=== PATIENT | female | born 1945 | race Caucasian/White ===

== ENCOUNTER → 2018-01-25 | Day surgery (SDC) | payer MEDICARE ==
--- NOTE | 2018-01-25 12:35 | MMO ---
STEREOTACTIC BIOPSY RIGHT BREAST MICROCALCIFICATIONS SURGICAL SPECIMEN MAMMOGRAPHY RIGHT DIAGNOSTIC MAMMOGRAPHY POST BIOPSY: History: Abnormal mammogram. Microcalcifications. FINDINGS: After explaining the procedure and answering all questions, the microcalcification cluster deep withi n the lateral aspect of the right breast was visualized. Sterile technique, buffered local anesthesia , stereotactic guidance and a lateral approach were used to carefully advance a 10 gauge vacuum magdy rafael needle into the microcalcifications. Position is confirmed. A total of 16 specimens were obtained . Surgical specimen mammography shows microcalcifications in the specimens. Localization clip is placed through the needle and needle was removed. Hemostatis was obtained using direct pressure. Patient to lerated the procedure well and was eventually dismissed in good condition. Post procedure mammography shows gas along the biopsy tract. Localization clip is in good position wh ere some microcalcifications have been removed deep within the lateral aspect of the right breast. IMPRESSION: Technically successful stereotactic guided biopsy right breast microcalcifications. Pathology is pend ing. POS: [id number]
== END ==
LOC: MAMMO 06:44
PROVIDERS: ATTEND Internal Medicine
PROC: [UNRECOGNIZED PROCEDURE] (principal; 2018-01-25)
DX: N60.21 Fibroadenosis of right breast (principal)
CPT/HCPCS: 19081; 76098; 88305

== ENCOUNTER 2022-12-23 10:16 | Outpatient (CLI) | payer MEDICARE, OTHER | END 2022-12-23 10:17 | disposition home or self-care (01) | LOC: BICMAMMO 10:16 | PROVIDERS: ATTEND Internal Medicine | DX: Z12.31 Encounter for screening mammogram for malignant neoplasm of breast (principal); M81.0 Age-related osteoporosis without current pathological fracture; M85.89 Other specified disorders of bone density and structure, multiple sites; Z91.89 Other specified personal risk factors, not elsewhere classified | CPT/HCPCS: 77063; 77067; 77080 ==